=== PATIENT | male | born 1945 | race Caucasian/White ===

== ENCOUNTER 2021-03-25 10:11 | Inpatient (IN) | payer MEDICARE, BC ==
[~2021-03-25] VITALS: Ht 180.3 cm; Wt 97.7 kg
[2021-03-25] MEDS ORDERED: NORVASC5 MG PO ×2 (10:15→19:58)
[2021-03-25] MEDS ORDERED: HYDROXYCHLOROQ200 MG PO ×2 (10:15→19:58)
[2021-03-25] MEDS ORDERED: METHOTREXATE2.5 MG PO ×2 (10:16→20:00)
[2021-03-25] MEDS ORDERED: HYTRIN10 MG PO ×2 (10:16→19:59)
[2021-03-25] MEDS ORDERED: METOPROLOL TART50 MG PO ×2 (10:16→20:00)
[2021-03-25] MEDS ORDERED: OMEPRAZOLE40 MG PO (10:16)
[2021-03-25] MEDS ORDERED: ASPIRIN81 MG PO ×2 (10:17→20:02)
[2021-03-25] MEDS ORDERED: LIPITOR20 MG PO (10:17)
[2021-03-25] MEDS ORDERED: JANTOVEN3 MG PO ×2 (10:17→20:01)
[2021-03-25] MEDS ORDERED: ASCORBIC ACID500 MG PO ×2 (10:18→20:03)
[2021-03-25 10:30] VITALS: BP 110/65
[2021-03-25 11:35] LABS: PROTIME 43.9 SECONDS (11.6-15.0)
[2021-03-25 11:36] LABS: APTT 59.7 SECONDS (22.8-39.4); CALC OSMOLALITY 274 mosm/kg (275-300); CALCIUM 8.9 mg/dL (8.5-10.1); CARBON DIOXIDE 27.6 mmol/L (21.0-32.0); CHLORIDE - SERUM 104 mmol/L (98-107); GLUCOSE 108 mg/dL (74-106); POTASSIUM - SERUM 4.4 mmol/L (3.5-5.1); SODIUM 136 mmol/L (136-145); UREA NITROGEN 19 mg/dL (7-18); eGFR NON AFRICAN AMERICAN 77 mL/min (90-120)
[2021-03-25 11:45] LABS: BASOPHILS 0.2 % (0-2); EOSINOPHILS 0 % (0-7); HEMATOCRIT 40.5 % (42.0-54.0); HEMOGLOBIN 13.2 g/dL (13.5-17.5); LYMPHOCYTES 7.5 % (15-50); MCHC 32.5 g/dL (31.0-37.0); MCV 92.4 fL (80.0-100.0); MEAN PLATELET VOLUME 7.8 fL (7.4-10.4); NEUTROPHILS 85.3 % (40-80); PLATELET COUNT 182 10x3/uL (130-400); RBC 4.39 10x6/uL (4.20-6.10); RDW 17.7 % (11.5-14.5); WBC 13.5 10x3/uL (4.8-10.8)
[2021-03-25 11:53] LABS: ALBUMIN 3.6 g/dL (3.4-5.0); ALKALINE PHOSPHATASE 72 U/L (30-120); ALT (SGPT) 37 U/L (10-68); BILIRUBIN - TOTAL 1.33 mg/dL (0.2-1.3); CKMB 0.7 U/L (0.0-3.6); CREATINE KINASE 73 UL (21-232); MAGNESIUM - SERUM 1.8 mg/dL (1.8-2.4); PROTEIN - SERUM 6.7 g/dL (6.4-8.2); TROPONIN-I < 0.017 ng/mL (0.000-0.060)
[2021-03-25 11:58] LABS: INR 5.08 (0.85-1.17)
[2021-03-25 15:26] VITALS: BP 112/69
[2021-03-25 17:04] VITALS: BP 115/66
[2021-03-25 17:44] LABS: CREATINE KINASE 63 UL (21-232)
[2021-03-25 17:45] LABS: TROPONIN-I < 0.017 ng/mL (0.000-0.060)
[2021-03-25 17:48] VITALS: BP 115/66
--- NOTE | 2021-03-25 19:00 | NUR ---
REPORT RECIEVED. PATIENT IS AAOX4, SITTING UP IN BED. NO S/S OF DISTRESS OBSERVED, RR EVEN AND UNLABORED ON ROOM AIR. PIV TO RT FA, PATENT, INFUSING NS @ 100ML/HR. URINAL PROVIDED TO PATIENT PER REQUEST. NO OTHER NEEDS EXPRESSED AT THIS TIME. CL IN REACH, BED LOCKED AND LOWERED. WILL CPOC.
[2021-03-25] MEDS ORDERED: OMEPRAZOLE20 M1 PO (19:59)
[2021-03-25] MEDS ORDERED: LIPITOR40 MG PO (20:01)
[2021-03-25] MEDS ORDERED: VITAMIN D31250 MCG PO (20:02)
[2021-03-25] MEDS ORDERED: FERROUS SULFAT325 MG PO (20:02)
[2021-03-25 20:14] VITALS: BP 109/61
[2021-03-25 23:38] VITALS: BP 94/73
[2021-03-25 23:53] LABS: CKMB 0.6 U/L (0.0-3.6); CREATINE KINASE 55 UL (21-232)
[2021-03-25 23:55] LABS: TROPONIN-I < 0.017 ng/mL (0.000-0.060)
--- NOTE | 2021-03-26 04:00 | NUR ---
I have reviewed this patient and I concur with the Shift Assessment completed by the Licensed Practical Nurse today this shift.
[2021-03-26 05:01] LABS: BASOPHILS 0.3 % (0-2); EOSINOPHILS 0.7 % (0-7); HEMATOCRIT 36.5 % (42.0-54.0); HEMOGLOBIN 12.1 g/dL (13.5-17.5); LYMPHOCYTES 10.8 % (15-50); MCH 30.5 pg (26.0-34.0); MCHC 33.2 g/dL (31.0-37.0); MCV 91.8 fL (80.0-100.0); MONOCYTES 7.9 % (2-11); NEUTROPHILS 80.3 % (40-80); PLATELET COUNT 159 10x3/uL (130-400); RBC 3.98 10x6/uL (4.20-6.10); RDW 17.4 % (11.5-14.5)
[2021-03-26 05:02] LABS: WBC 9.1 10x3/uL (4.8-10.8)
[2021-03-26 05:31] LABS: ALKALINE PHOSPHATASE 56 U/L (30-120); BILIRUBIN - TOTAL 1.21 mg/dL (0.2-1.3); CALC OSMOLALITY 277 mosm/kg (275-300); CALCIUM 8.4 mg/dL (8.5-10.1); CHLORIDE - SERUM 105 mmol/L (98-107); GLUCOSE 112 mg/dL (74-106); MAGNESIUM - SERUM 1.7 mg/dL (1.8-2.4); POTASSIUM - SERUM 3.9 mmol/L (3.5-5.1); PROTEIN - SERUM 5.8 g/dL (6.4-8.2); SODIUM 138 mmol/L (136-145); UREA NITROGEN 16 mg/dL (7-18); eGFR NON AFRICAN AMERICAN 77 mL/min (90-120)
[2021-03-26 05:34] LABS: ALT (SGPT) 26 U/L (10-68); TROPONIN-I < 0.017 ng/mL (0.000-0.060)
[2021-03-26 05:55] LABS: INR 3.31 (0.85-1.17); PROTIME 31.3 SECONDS (11.6-15.0)
[2021-03-26 06:07] VITALS: BP 115/64
[2021-03-26 12:27] VITALS: BP 125/77
[2021-03-26 14:45] LABS: INR 2.26 (0.85-1.17); PROTIME 23.2 SECONDS (11.6-15.0)
[2021-03-26 14:54] VITALS: Ht 180.3 cm; Wt 97.7 kg
--- NOTE | 2021-03-26 19:00 | NUR ---
BEDSIDE REPORT RECEIVED AND CARE OF PT ASSUMED. PT LYING IN HIGH ROBLES'S POSITION VISITING WITH FAMILY MEMBERS. IV TO RIGHT FA PATENT WITH NS INFUSING AT 100 ML/HR. TELEMETRY IN PLACE AND READING PACED AT THIS ASSESSMENT. WILL MONITOR FOR NEEDS.
[2021-03-26 19:34] VITALS: BP 109/67
--- NOTE | 2021-03-26 21:04 | NUR ---
FSBS 95 AT THIS CHECK REQUIRING NO COVERAGE PER SLIDING SCALE. GAVE X2 JELLO FOR HS SNACK.
--- NOTE | 2021-03-27 03:00 | NUR ---
PT HAS HAD X3 WATERY DIARRHEA EPISODES THIS SHIFT. OFFERED TO CALL MD FOR MEDS, BUT HE DECLINED, STATING HE WILL TALK TO DOCTOR IN AM.
[2021-03-27 04:03] VITALS: BP 110/52
[2021-03-27 05:47] LABS: BASOPHILS 0.3 % (0-2); HEMATOCRIT 39.1 % (42.0-54.0); HEMOGLOBIN 12.8 g/dL (13.5-17.5); LYMPHOCYTES 12.4 % (15-50); MCH 30.2 pg (26.0-34.0); MCHC 32.9 g/dL (31.0-37.0); MCV 91.8 fL (80.0-100.0); MEAN PLATELET VOLUME 7.7 fL (7.4-10.4); MONOCYTES 10.3 % (2-11); PLATELET COUNT 185 10x3/uL (130-400); RBC 4.26 10x6/uL (4.20-6.10); RDW 16.9 % (11.5-14.5); WBC 8.3 10x3/uL (4.8-10.8)
[2021-03-27 06:08] LABS: INR 1.85 (0.85-1.17); PROTIME 19.8 SECONDS (11.6-15.0)
[2021-03-27 06:20] LABS: ALBUMIN 3.1 g/dL (3.4-5.0); ALKALINE PHOSPHATASE 63 U/L (30-120); ALT (SGPT) 29 U/L (10-68); BILIRUBIN - TOTAL 1.49 mg/dL (0.2-1.3); CALC OSMOLALITY 276 mosm/kg (275-300); CALCIUM 8.8 mg/dL (8.5-10.1); CARBON DIOXIDE 24.5 mmol/L (21.0-32.0); CHLORIDE - SERUM 104 mmol/L (98-107); CREATININE - SERUM 0.9 mg/dL (0.6-1.3); GLUCOSE 98 mg/dL (74-106); MAGNESIUM - SERUM 1.8 mg/dL (1.8-2.4); POTASSIUM - SERUM 3.8 mmol/L (3.5-5.1); PROTEIN - SERUM 6.2 g/dL (6.4-8.2); SODIUM 139 mmol/L (136-145); TROPONIN-I < 0.017 ng/mL (0.000-0.060); UREA NITROGEN 10 mg/dL (7-18); eGFR NON AFRICAN AMERICAN 87 mL/min (90-120)
--- NOTE | 2021-03-27 07:15 | NUR ---
REC'D IN BED AWAKE AND ALERT. RESP EVEN AND UNLABORED WITH NO DISTRESS NOTED. CAN EXPRESS NEEDS AND WANTS. NO C/O NOTED OR VOICED. ASSESSMENT COMPLETED. C/L IN REACH AT BEDSIDE.
[2021-03-27 08:56] VITALS: BP 127/65
--- NOTE | 2021-03-27 13:45 | NUR ---
JUST RETURN BACK FROM SURGERY AT THIS TIME AWAKE AND ALERT. RESP EVEN AND UNLABORED WITH NO DISTRESS NOTED. CAN EXPRESS NEEDS. NO C/O NOTED OR VOICED. 3 LAP SITE NOTED AND SAGRARIO DRAINING TO LLQ. FAMILY AT BEDSIDE. C/L IN REACH AT BEDSIDE.
[2021-03-27 13:47] VITALS: BP 126/84
--- NOTE | 2021-03-27 17:21 | NUR ---
I have reviewed this patient and I concur with the Shift Assessment completed by the Licensed Practical Nurse today this shift.
[2021-03-27 17:24] VITALS: BP 102/77
[2021-03-27 19:58] VITALS: BP 127/79
--- NOTE | 2021-03-27 20:00 | NUR ---
PT SITTING UP IN BED WITHOUT DISTRESS, AOX4. AT BEDSIDE. INFORMED BY NURSES AID THAT TEMP WAS 101. 80 DEGREES IN PT ROOM WITH AT BEDSIDE UNDER BLANKET STATING SHE STAYS COLD. EXPLAINED TO PT AND WE NEEDED TO BRING HIS TEMP DOWN. TURNED AC ON AND INSTRUCTED PT TO LEAVE BLANKET OFF FOR WHILE. RECHECKED PT TEMP AND IT WAS DOWN TO 99.8
[2021-03-28 00:54] VITALS: BP 121/76
[2021-03-28 04:00] VITALS: BP 125/73
[2021-03-28 06:20] LABS: BASOPHILS 0.1 % (0-2); EOSINOPHILS 0.3 % (0-7); HEMOGLOBIN 12.1 g/dL (13.5-17.5); LYMPHOCYTES 8.5 % (15-50); MCH 30.7 pg (26.0-34.0); MCHC 33.6 g/dL (31.0-37.0); MCV 91.3 fL (80.0-100.0); MEAN PLATELET VOLUME 7.7 fL (7.4-10.4); MONOCYTES 3.8 % (2-11); NEUTROPHILS 87.3 % (40-80); PLATELET COUNT 191 10x3/uL (130-400); RBC 3.94 10x6/uL (4.20-6.10); RDW 16.7 % (11.5-14.5)
[2021-03-28 06:24] LABS: INR 1.58 (0.85-1.17); PROTIME 17.5 SECONDS (11.6-15.0)
[2021-03-28 06:29] LABS: ALBUMIN 2.8 g/dL (3.4-5.0); ALKALINE PHOSPHATASE 58 U/L (30-120); ALT (SGPT) 23 U/L (10-68); BILIRUBIN - TOTAL 1.54 mg/dL (0.2-1.3); CALC OSMOLALITY 273 mosm/kg (275-300); CALCIUM 8.5 mg/dL (8.5-10.1); CARBON DIOXIDE 23.1 mmol/L (21.0-32.0); CHLORIDE - SERUM 103 mmol/L (98-107); CREATININE - SERUM 0.9 mg/dL (0.6-1.3); GLUCOSE 116 mg/dL (74-106); MAGNESIUM - SERUM 1.7 mg/dL (1.8-2.4); POTASSIUM - SERUM 3.8 mmol/L (3.5-5.1); SODIUM 136 mmol/L (136-145); TROPONIN-I < 0.017 ng/mL (0.000-0.060); eGFR NON AFRICAN AMERICAN 87 mL/min (90-120)
[2021-03-28 06:31] LABS: UREA NITROGEN 16 mg/dL (7-18)
[2021-03-28 06:58] LABS: WBC 10.7 10x3/uL (4.8-10.8)
--- NOTE | 2021-03-28 08:00 | NUR ---
REC'D IN BED AWAKE AND ALERT. RESP EVEN AND UNLABORED WITH NO DISTRESS NOTED. CAN EXPRESS NEEDS AND WANTS. NO C/O NOTED OR VOICED. ASSESSMENT COMPLETED. C/L IN REACH.
[2021-03-28 09:24] VITALS: BP 108/70
[2021-03-28 11:52] VITALS: BP 110/77
--- NOTE | 2021-03-28 14:00 | NUR ---
I have reviewed this patient and I concur with the Shift Assessment completed by the Licensed Practical Nurse today this shift.
[2021-03-28 16:18] VITALS: BP 109/65
[2021-03-28 19:45] VITALS: BP 99/67
--- NOTE | 2021-03-28 20:00 | NUR ---
PT SITTING UP IN BED WITHOUT DISTRESS, AOX4. AT BEDSIDE. DENIES NEEDS OR PAIN. CL IN REACH
[2021-03-29 00:19] VITALS: BP 98/48
[2021-03-29 04:26] VITALS: BP 129/71
[2021-03-29 06:17] LABS: INR 1.47 (0.85-1.17); PROTIME 16.5 SECONDS (11.6-15.0)
[2021-03-29 06:22] LABS: BASOPHILS 0.6 % (0-2); EOSINOPHILS 2.4 % (0-7); HEMATOCRIT 34.7 % (42.0-54.0); HEMOGLOBIN 11.5 g/dL (13.5-17.5); LYMPHOCYTES 14.2 % (15-50); MCH 30.5 pg (26.0-34.0); MCHC 33.1 g/dL (31.0-37.0); MEAN PLATELET VOLUME 7.8 fL (7.4-10.4); MONOCYTES 3.4 % (2-11); NEUTROPHILS 79.4 % (40-80); PLATELET COUNT 206 10x3/uL (130-400); RBC 3.77 10x6/uL (4.20-6.10); RDW 16.5 % (11.5-14.5)
[2021-03-29 06:24] LABS: WBC 6.3 10x3/uL (4.8-10.8)
[2021-03-29 06:52] LABS: ALBUMIN 2.6 g/dL (3.4-5.0); ALKALINE PHOSPHATASE 51 U/L (30-120); BILIRUBIN - TOTAL 0.79 mg/dL (0.2-1.3); CALC OSMOLALITY 281 mosm/kg (275-300); CALCIUM 8.5 mg/dL (8.5-10.1); CARBON DIOXIDE 26.1 mmol/L (21.0-32.0); CHLORIDE - SERUM 107 mmol/L (98-107); CREATININE - SERUM 0.9 mg/dL (0.6-1.3); GLUCOSE 100 mg/dL (74-106); MAGNESIUM - SERUM 1.8 mg/dL (1.8-2.4); PROTEIN - SERUM 5.7 g/dL (6.4-8.2); SODIUM 141 mmol/L (136-145); UREA NITROGEN 15 mg/dL (7-18); eGFR NON AFRICAN AMERICAN 87 mL/min (90-120)
[2021-03-29 06:56] LABS: ALT (SGPT) 31 U/L (10-68); TROPONIN-I < 0.017 ng/mL (0.000-0.060)
--- NOTE | 2021-03-29 08:06 | NUR ---
ALERT AND ORIENTED. ASSESSMENT COMPLETE. DENIES NEEDS. BED LOW. CALL SALGADO AND PERSONAL ITEMS IN REACH. WILL CONTINUE TO MONITOR.
--- NOTE | 2021-03-29 09:38 | NUR ---
SAGRARIO DRAIN REMOVED PER ORDER WITHOUT DIFFICULTY. TIP INTACT. IVS REMOVED FROM BILAT ARMS WITH TIPS INTACT. OK TO LEAVE OUT PER ACCOUNTING BOOKKEEPER SAFIA. IV LEVAQUIN CHANGED TO PO PER ACCOUNTING BOOKKEEPER.
--- NOTE | 2021-03-29 09:51 | NUR ---
PATIENT REQUESTING TELE OFF. REMOVED AND RETURNED TO [facility].
[2021-03-29 10:13] VITALS: BP 139/81
[2021-03-29 13:10] VITALS: BP 131/84
[2021-03-29 16:57] VITALS: BP 115/71
[2021-03-29 20:00] VITALS: BP 101/69
--- NOTE | 2021-03-29 20:00 | NUR ---
PT SITTING UP IN CHAIR, AOX4. SITTING ON SIDE OF BED. DENIES PAIN OR NEEDS AT THIS TIME. CL IN REACH
[2021-03-30 04:00] VITALS: BP 141/97
[2021-03-30 06:50] LABS: INR 1.49 (0.85-1.17); PROTIME 16.7 SECONDS (11.6-15.0)
[2021-03-30 07:03] LABS: BASOPHILS 0.7 % (0-2); EOSINOPHILS 2.8 % (0-7); HEMOGLOBIN 11.6 g/dL (13.5-17.5); LYMPHOCYTES 11.1 % (15-50); MCH 30.5 pg (26.0-34.0); MCHC 33.2 g/dL (31.0-37.0); MCV 91.9 fL (80.0-100.0); MEAN PLATELET VOLUME 7.7 fL (7.4-10.4); MONOCYTES 4.9 % (2-11); NEUTROPHILS 80.5 % (40-80); PLATELET COUNT 230 10x3/uL (130-400); RBC 3.81 10x6/uL (4.20-6.10); RDW 16.4 % (11.5-14.5); WBC 6.7 10x3/uL (4.8-10.8)
[2021-03-30 07:04] LABS: ALBUMIN 2.8 g/dL (3.4-5.0); ALKALINE PHOSPHATASE 60 U/L (30-120); ALT (SGPT) 36 U/L (10-68); BILIRUBIN - TOTAL 0.99 mg/dL (0.2-1.3); CALC OSMOLALITY 275 mosm/kg (275-300); CALCIUM 8.8 mg/dL (8.5-10.1); CARBON DIOXIDE 26.9 mmol/L (21.0-32.0); CHLORIDE - SERUM 105 mmol/L (98-107); CREATININE - SERUM 0.9 mg/dL (0.6-1.3); GLUCOSE 86 mg/dL (74-106); MAGNESIUM - SERUM 1.8 mg/dL (1.8-2.4); POTASSIUM - SERUM 3.8 mmol/L (3.5-5.1); PROTEIN - SERUM 6.1 g/dL (6.4-8.2); SODIUM 139 mmol/L (136-145); TROPONIN-I < 0.017 ng/mL (0.000-0.060); UREA NITROGEN 10 mg/dL (7-18); eGFR NON AFRICAN AMERICAN 87 mL/min (90-120)
--- NOTE | 2021-03-30 08:00 | NUR ---
ALERT AND ORIENTED. ASSESSMENT COMPLETE. DENIES NEEDS. BED LOW. CALL SALGADO AND PERSONAL ITEMS IN REACH. WILL CONTINUE TO MONITOR.
[2021-03-30] MEDS ORDERED: ATROVENT 0.02%2.5 ML INH (09:47)
[2021-03-30] MEDS ORDERED: CLEOCIN HCL300 MG PO (09:47)
[2021-03-30] MEDS ORDERED: LEVOFLOXACIN500 MG PO (09:47)
[2021-03-30] MEDS ORDERED: TESSALON PERLE100 MG PO (09:48)
[2021-03-30] MEDS ORDERED: MUCINEX DM ER1 EAC1 PO (09:48)
[2021-03-30] MEDS ORDERED: FLORAJEN DIGES1 EACH PO (09:48)
[2021-03-30 09:51] VITALS: BP 123/75
--- NOTE | 2021-03-30 12:09 | NUR ---
O2 SAT 96% RESTING ON ROOM AIR. SAT 94% WALKING IN ROOM ON ROOM AIR.
[2021-03-30 12:51] VITALS: BP 102/50
--- NOTE | 2021-03-30 12:58 | NUR ---
DC EDUCATION PROVIDED BOTH WRITTEN AND VERBAL. VERBALIZED UNDERSTANDING. DENIES FURTHER QUESTIONS. NO IV TO REMOVE. DENIES NEEDS. PATIENT DC HOME WITH WITH ALL BELONGINGS.
--- NOTE | 2021-03-30 13:24 | MORECARE ---
CASE MANAGEMENT DISCHARGE SUMMARY PATIENT: JIM SILVA UNIT: [id number] ADM DATE: 03/25/21 AGE: 75 : 44 SEX: M ROOM/BED: D.2219 AUTHOR: MARGIE,DOC PHYSICIAN: REFERRING PHYSICIAN: YADIEL LOPEZ MD DATE OF SERVICE: 03/30/21 Case Management Discharge Planning Summary COMMENTS ENTERED DATE: 03/30/21 13:23 CT COMMENT TYPE: Discharge Planning REVIEWER: Windy Espinal CM met with patient to complete initial dc planning assessment. CM educated patient on the CM role and verbal consent given by patient to complete assessment. Patient lives at home with his spouse where he is independent with his care. At discharge patient plans to return home and feels this is a safe discharge. He has a nebulizer at home and he passed his walk test per Shaina LAMBERT. IMM served and explained. CM discussed availability of home health, rehab services, and medical equipment. Patient denied known discharge needs at this time. CM will continue to follow and will assist as needed with dc plans/needs. DCP REVIEW SUMMARY ANTICIPATED D/C DATE: EXPECTED LOS : CASE STATUS: DCP Initiated INITIAL REVIEW: 03/25/2021 INITIAL REVIEWER: Windy Espinal FINAL DISCHARGE DISPOSITION: 01 : Home or Self Care (Routine Discharge) FINAL REVIEWER: FINAL REVIEW DATE: DCP Focus Questions & Answers QUESTION: ANSWER : PATIENT: JIM SILVA ENCOUNTER: [id number] MEDICAL RECORD#: [id number] ADMISSION DATE: 03/25/2021 DISCHARGE DATE: 03/30/2021 ATTENDING MD: MEHRAN: [id number] AGE: 75 MARITAL STATUS: M DC PLAN ID: [id number] FACILITY: [facility] PRINTED ON: 03/30/21 13:24 CT All edits/amendments must be made on the electronic document DICTATION DATE: 03/30/21 132 CHICKEN FANCIER: PRICE 03/30/21 1324 RPT#: [id number] DC DATE:03/30/21 STATUS: DIS IN [facility] [address] [place] [address] END OF REPORT
--- NOTE | 2021-04-03 15:34 | MORECARE ---
CASE MANAGEMENT DISCHARGE SUMMARY PATIENT: JIM SILVA UNIT: [id number] ADM DATE: 03/25/21 AGE: 75 : 44 SEX: M ROOM/BED: D.2219 AUTHOR: MARGIE,DOC PHYSICIAN: REFERRING PHYSICIAN: YADIEL LOPEZ MD DATE OF SERVICE: 04/03/21 Case Management Discharge Planning Summary COMMENTS ENTERED DATE: 03/30/21 13:23 CT COMMENT TYPE: Discharge Planning REVIEWER: Windy Espinal CM met with patient to complete initial dc planning assessment. CM educated patient on the CM role and verbal consent given by patient to complete assessment. Patient lives at home with his spouse where he is independent with his care. At discharge patient plans to return home and feels this is a safe discharge. He has a nebulizer at home and he passed his walk test per Shaina LAMBERT. IMM served and explained. CM discussed availability of home health, rehab services, and medical equipment. Patient denied known discharge needs at this time. CM will continue to follow and will assist as needed with dc plans/needs. DCP REVIEW SUMMARY ANTICIPATED D/C DATE: EXPECTED LOS : CASE STATUS: DCP Initiated INITIAL REVIEW: 03/25/2021 INITIAL REVIEWER: Windy Espinal FINAL DISCHARGE DISPOSITION: 01 : Home or Self Care (Routine Discharge) FINAL REVIEWER: FINAL REVIEW DATE: DCP Focus Questions & Answers QUESTION: ANSWER : PATIENT: JIM SILVA ENCOUNTER: [id number] MEDICAL RECORD#: [id number] ADMISSION DATE: 03/25/2021 DISCHARGE DATE: 03/30/2021 ATTENDING MD: MEHRAN: [id number] AGE: 75 MARITAL STATUS: M DC PLAN ID: [id number] FACILITY: [facility] PRINTED ON: 04/03/21 15:34 CT All edits/amendments must be made on the electronic document DICTATION DATE: 04/03/211533 CURRICULUM DEVELOPER: PRICE 04/03/211533 RPT#: [id number] DC DATE:03/30/21 STATUS: DIS IN [facility] [address] [place] [address] END OF REPORT
== END 2021-03-30 12:58 | disposition home or self-care (01) | DRG 341 ==
LOC: D.ER 10:11 → D.M2 11:25 → D.MS 11:25 → D.EDHOLD 11:25 → D.M2 16:08 → D.MS 03-26 18:39
PROVIDERS: Anesthesiology; Family Medicine; Surgery; ADMIT Family Medicine; ATTEND Family Medicine
PROC: 0DTJ4ZZ Resection of Appendix, Percutaneous Endoscopic Approach (ICD-10-PCS; principal; 2021-03-27 12:00)
DX: K36 Other appendicitis (principal); J69.0 Pneumonitis due to inhalation of food and vomit; I24.9 Acute ischemic heart disease, unspecified; I48.20 Chronic atrial fibrillation, unspecified; Z79.01 Long term (current) use of anticoagulants; Z79.82 Long term (current) use of aspirin; E78.5 Hyperlipidemia, unspecified; N40.0 Benign prostatic hyperplasia without lower urinary tract symptoms; M06.9 Rheumatoid arthritis, unspecified; I11.0 Hypertensive heart disease with heart failure; I50.9 Heart failure, unspecified; I25.10 Atherosclerotic heart disease of native coronary artery without angina pectoris; Z95.1 Presence of aortocoronary bypass graft